=== PATIENT | male | born 1985 | race Caucasian/White ===

== ENCOUNTER 2017-05-06 18:23 | Emergency (ER) | payer SELFPAY ==
[~2017-05-06] VITALS: Ht 177.8 cm; Wt 90.1 kg
[2017-05-06 18:25] VITALS: BP 136/94
[2017-05-06] MEDS ORDERED: CEFTRIAXONE 250 MG IM ONE (18:30)
[2017-05-06] MEDS ORDERED: AZITHROMYCIN 500 MG TABLET PO ONE (18:30)
[2017-05-06] MEDS ORDERED: CEFTRIAXONE 250 MG ONE (18:45)
[2017-05-06] MEDS ORDERED: AZITHROMYCIN 250 MG TABLET ONE (18:45)
== END 2017-05-06 19:13 | disposition home or self-care (01) ==
LOC: ED 18:40
DX: A56.01 Chlamydial cystitis and urethritis (principal); A54.01 Gonococcal cystitis and urethritis, unspecified
CPT/HCPCS: 87491; 87591; 96372; 99284; J0696